=== PATIENT | male | born 1940 | race Caucasian/White ===

== ENCOUNTER → 2017-12-04 | Day surgery (SDC) | payer MEDICARE, OTHER ==
[2017-12-02 10:38] VITALS: BMI 27.3
[~2017-12-04] MED LIST: LACTATED RINGERS 1,000 ML IV ONE; LACTATED RINGERS 1,000 ML IV SCH; LIDOCAINE 1% 20 ML VIAL (10MG/ML) FOR IV START INTRADERMA ONE; LIDOCAINE 1% 20 ML VIAL (10MG/ML) FOR IV START INTRADERMA PRN; LIDOCAINE 1% INJ 10MG/ML (20 ML MDV) ONE; PROPOFOL 10 MG/ML 20 ML VIAL IV ONE
[2017-12-04 11:18] VITALS: TEMP 98
--- NOTE | 2017-12-04 13:05 | P.PCN ---
Date of Procedure: 12/04/17 Procedure(s) Performed: BRIEF HISTORY: Patient is a 77-year-old pleasant white male, scheduled for an elective colonoscopy as a part of screening for colorectal neoplasia. His Father had colon cancer in his 60s. PROCEDURE PERFORMED: Colonoscopy with snare polypectomy. PREOPERATIVE DIAGNOSIS: Screening for colon cancer/family history of colon cancer. IV sedation per Anesthesia. PROCEDURE: After informed consent was obtained, the patient, was brought into the endoscopy unit. IV sedation was administered by Anesthesia under continuous monitoring. Digital rectal examination was normal. Initially the Olympus CF- 160 flexible video colonoscope was then inserted in the rectum, gradually advanced into the cecum without any difficulty. Careful examination was performed as the scope was gradually being withdrawn. Ileocecal valve and the appendiceal orifice were visualized and appeared normal. Prep was excellent. Mucosa of the cecum, appeared normal. In the ascending colon there was a 1 segment of flat polyp that was removed by snare polypectomy. ascending colon, transverse colon, descending colon, sigmoid colon, and rectum appeared normal. Moderate left sided diverticulosis seen. Retroflexion was performed in the rectum and no lesions were seen. The patient tolerated the procedure well. IMPRESSION: 1 cm flat ascending colon polyp status post snare polypectomy. Moderate left sided diverticulosis RECOMMENDATIONS: Findings of this examination were discussed with the patient as well as his family. He was advised to follow with the biopsy results and have a repeat colonoscopy in 3 years.
[2017-12-04 13:28] VITALS: BP 146/69; PULSE 52; RESP 16
== END ==
LOC: ORWHC2ENDO 10:50
PROVIDERS: ATTEND Internal Medicine Gastroenterology
DX: Z12.11 Encounter for screening for malignant neoplasm of colon (principal); K63.5 Polyp of colon; K57.30 Diverticulosis of large intestine without perforation or abscess without bleeding; Z80.0 Family history of malignant neoplasm of digestive organs; I10 Essential (primary) hypertension; I48.91 Unspecified atrial fibrillation; K21.9 Gastro-esophageal reflux disease without esophagitis; H93.19 Tinnitus, unspecified ear; Z79.01 Long term (current) use of anticoagulants; Z79.899 Other long term (current) drug therapy; Z87.891 Personal history of nicotine dependence; Z91.041 Radiographic dye allergy status
CPT/HCPCS: 88305; 45385; J2001; J2704

== ENCOUNTER → 2018-12-03 | Outpatient (CLI) | payer MEDICARE, OTHER ==
--- NOTE | 2018-12-03 19:35 | P.STRESS ---
- Stress Test Note Stress Test Results/Findings: Exam Performed: stress echo exercise Exam Date: 12/03/18 Reason for Exam: sob Height: 5 ft 11 in Weight: 89.358 kg Protocol: Stress Echo Stage: IV Duration of Exercise: 10:45 Resting Heart Rate: 56 Resting Blood Pressure: 100/65 Maximum Achieved Heart Rate: 123 Maximum Achieved Blood Pressure: 167/51 85% PMHR: 122 100% PMHR: 143 METS: 85 Technologist Comment: Stress Test Results/Findings: This is a 78-year-old gentleman with history of hypertension and hypercholesterolemia being evaluated for symptoms of shortness of breath. Stress data: Baseline EKG showed sinus rhythm with normal WI interval, QRS duration with nonspecific changes. Patient awoke on the Anshu protocol for 10 minutes achieving a maximal heart rate of 123 with blood pressure 167/51. EKGs taken during and after exercise did not reveal any significant changes from the baseline. Echo data: Baseline echo images showed normal wall motion and thickening. Exercise echo images showed augmentation of wall motion and thickening in all the segments. Final impression: #1. Negative stress test #2. Negative stress echo
--- NOTE | 2018-12-04 11:26 | ECHOS ---
Stress Test Results/Findings: Exam Performed: stress echo exercise Exam Date: 12/03/18 Reason for Exam: sob Height: 5 ft 11 in Weight: 89.358 kg Protocol: Stress Echo Stage: IV Duration of Exercise: 10:45 Resting Heart Rate: 56 Resting Blood Pressure: 100/65 Maximum Achieved Heart Rate: 123 Maximum Achieved Blood Pressure: 167/51 85% PMHR: 122 100% PMHR: 143 METS: 85 Technologist Comment: Stress Test Results/Findings: This is a 78-year-old gentleman with history of hypertension and hypercholesterolemia being evaluated for symptoms of shortness of breath. Stress data: Baseline EKG showed sinus rhythm with normal HI interval, QRS duration with nonspecific changes. Patient awoke on the Anshu protocol for 10 minutes achieving a maximal heart rate of 123 with blood pressure 167/51. EKGs taken during and after exercise did not reveal any significant changes from the baseline. Echo data: Baseline echo images showed normal wall motion and thickening. Exercise echo images showed augmentation of wall motion and thickening in all the segments. Final impression: #1. Negative stress test #2. Negative stress echo MTDD
== END | disposition home or self-care (01) ==
LOC: RADNMMAIN 09:11
PROVIDERS: ATTEND Family Medicine
DX: R06.02 Shortness of breath (principal); R53.83 Other fatigue
CPT/HCPCS: 93351

== ENCOUNTER → 2022-02-12 | Outpatient (CLI) | payer MEDICARE, OTHER ==
--- NOTE | 2022-02-12 12:17 | CA ---
Exercise Stress Test Report Name: David Costa Exam Date: 02/12/2022 11:35 Exam Location: [facility] Ht (in): 71 Wt (lb): 193 BSA: 2.08 Ordering Phys: Radha Griffin MD Referring Phys: SAUNDRA,, Technologist: Elie Pedraza Age: 81 Gender: M : 1940 Procedure CPT: Indications: I49.9 arrythmia ICD-10 Codes: Patient History: HTN, FORMER SMOKER, POSSIBLE PRIOR MT, HX OF CARDIAC CATH Medications: LISINOPRIL,,,,,, TAMAOR,,,,,, ELIQUIS,,,,, Meds past 24 hrs: Pretest Chest Pain: STRESS TEST Anshu Protocol Exercise Duration (min:sec): 10:[address] Depressions (mm): Angina Score: Bravo Score: Resting HR (bpm): 58 Peak HR (bpm): 125 Resting BP (mmHg): 142 / 74 Peak BP (mmHg): 179 / 58 MPHR: 140 Target HR: 119 % MPHR: 89 METS: 12.1 Total Dose: Peak Dose: Atropine: Double Product: 28135 BP Response: Stress Termination: TARGET HR REACHED/MAX EXERTION Stress Symptoms: NO SYMPTOMS Stress Summary: ECG ANALYSIS Resting ECG: Normal sinus rhythm normal axis normal intervals with occasional PVCs Stress ECG: Patient exercised on Anshu protocol for 10 and half minutes achieving 12 mets 89% of predicted maximal heart rate without chest pain or diagnostic ST segment depression CONCLUSIONS Good exercise tolerance Negative stress test by EKG criteria Cardiolite portion of the stress test will be reported separately Dr. Jackson Durham MD (Electronically Signed) Final Date: 12 February 2022 12:16
--- NOTE | 2022-02-13 08:26 | NM ---
EXAMINATION TYPE: NM stress cardiolite complete DATE OF EXAM: 02/12/2022 COMPARISON: NONE HISTORY: 81-year-old male I 4 9.9, arrhythmia TECHNIQUE: After the intravenous administration of 10.5 mCi Tc 99m Sestamibi - Rest images obtained 45 minutes post injection. The patient exercised using a ANY protocol and 1 minute prior to peak exercise was injected with 25.8 mCi Tc 99m Sestamibi - Stress images obtained 10 minutes post injecti on. FINDINGS: Targeted heart rate (119 bpm) was achieved during performance of the study. 125 bpm achieved. Review of stress and rest SPECT images demonstrates a defect along the mid to basal inferior and inferosepta l wall particularly on rest. This becomes less pronounced on stress suggesting diaphragmatic attenuat ion artifact rather than a true defect. No discrete reversibility is seen. Gated analysis shows manuela l wall motion with an estimated left ventricular ejection fraction of 65 %. TID this calculated at 0 .73, within normal limits. IMPRESSION: Suspect prominent diaphragmatic attenuation artifact especially along the mid to basal in ferior wall rather than old infarct. No discrete reversibility is seen.
== END | disposition home or self-care (01) ==
LOC: RADNMMAIN 07:47
PROVIDERS: ATTEND Family Medicine
DX: I49.9 Cardiac arrhythmia, unspecified (principal)
CPT/HCPCS: 78452; 93017

== ENCOUNTER → 2022-02-28 | Outpatient (CLI) | payer MEDICARE, OTHER ==
--- NOTE | 2022-02-28 14:46 | P.SLEEP ---
History of Present Illness DATE: 02/28/2022 CONSULTATION/NEW PATIENT EVALUATION HISTORY OF PRESENT ILLNESS/SLEEP-WAKE EVALUATION: 81 year old gentleman had been evaluated in the sleep center for possible obstructive sleep apnea hypopnea syndrome. SLEEP SCHEDULE: Usually sleep schedule from 11:30 PM until 8 AM 7 days a week. FALLING ASLEEP: Usually no problems with the falling asleep, although patient used to agreed in bedroom. DURING SLEEP: Firmly denied snoring. Patient wakes up from sleep 2 times with nocturia. He has difficulties to fall asleep again after awakenings. Positive history of dry mouth, choking. No history of hypnogogical hallucinations, sleep paralysis, or cataplexy. DURING THE DAY/WAKE STATE: In the morning patient wake up tired, falling asleep during the day. [place] sleepiness scale is 11, which indicates sleepiness. Patient takes 1 nap at afternoon time. PAST MEDICAL HISTORY: Arterial fibrillation, hypertension. PAST SURGICAL HISTORY: Tonsillectomy. MEDICATIONS: Lisinopril, Eliquis, Tambocor. SOCIAL HISTORY: Negative for smoking, alcohol consumption occasional. FAMILY HISTORY: Heart problems, cancer, asthma. REVIEW OF SYSTEMS: Multiple awakenings from sleep with difficulties to initiate sleep again. No fevers. No double vision. No recent chest pain. No shortness of breath. No abdominal pain. No bleeding episodes. No blood in urine. No seizure episodes. PHYSICAL EXAMINATION: GENERAL: A pleasant patient without any distress. VITAL SIGNS: BP 116/65 , HR 58 , RR 14 , weight 200.6 pounds, height 5 foot 11.5 inches, body mass index 27.5 . HEENT: PERRLA, EOMI. Evaluation of oropharynx showed tongue protrudes midline, low position of soft palate Mallampati 34. NECK: Supple. No JVD. Thyroid is not palpable. 16-1/4 inches in circumference. LUNGS: Clear to percussion and to auscultation. Good air exchange. No wheezing or rhonchi. HEART: S1, S2 regular. No murmurs, gallops or rubs. ABDOMEN: Soft and nontender. Bowel sounds are present. No organomegaly appreciated. EXTREMITIES: No clubbing or cyanosis. MODEL MAKER APPRENTICE: Awake, alert, and oriented x3. Cranial nerves 2 to 7 intact. There is no fasciculation or atrophy noted. No focal deficits observed. ASSESSMENT: 1. Multiple awakenings from sleep, small oropharyngeal air space, sleepiness [place] Sleepiness Scale increased to 11. Obstructive sleep apnea hypopnea syndrome. 2. Hypertension. 3. History of atrial fibrillation. 4. Status post tonsillectomy. PLAN: 1. Polysomnography for evaluation of patient's breathing during sleep. 2. CPAP/BiPAP titration if sleep study confirms obstructive sleep apnea- hypopnea syndrome. 3. Preferable position during sleep on the side. 4. No driving if patient feels any sleepiness. Patient is aware of civil and criminal liability for unsafe driving. 5. Sleep hygiene with regular sleep time for at least 7.5-8 hours. 6. Watching weight. 7. Worry time psychological technique have been discussed with patient to prevent difficulties to fall asleep after awakenings at night. Thank you very much for referring this patient for consultation. Sincerely, Donn Hickman MD, PhD, FAASM. Diplomat of [place] [employer], Sleep Medicine Board by [place] [employer] [place] [employer] Surgical Dental Assistant of [facility] [place] Past Medical History Past Medical History: Atrial Fibrillation, Hypertension Additional Past Medical History / Comment(s): ringing in ears History of Any Multi-Drug Resistant Organisms: None Reported Past Surgical History: Heart Catheterization, Tonsillectomy Additional Past Surgical History / Comment(s): surgery lt hip for infection Past Anesthesia/Blood Transfusion Reactions: No Reported Reaction Past Psychological History: No Psychological Hx Reported Past Alcohol Use History: Rare Additional Past Alcohol Use History / Comment(s): smoked 4 years 1pack/wk quit 1967 - Past Family History Father Additional Family Medical History / Comment(s): passed at age 96 Mother Additional Family Medical History / Comment(s): passed at age 92 Medications and Allergies Home Medications Medication Instructions Recorded Confirmed Type Apixaban [Eliquis] 5 mg PO BID 12/02/17 12/02/17 History Flecainide [Tambocor] 50 mg PO Q12HR 12/02/17 12/02/17 History lisinopriL [Zestril] 2.5 mg PO DAILY 12/02/17 12/02/17 History Allergies Allergy/AdvReac Type Severity Reaction Status Date / Time cardiolite AdvReac a-fib,stomach Uncoded 12/02/17 10:55 cramps Sleep Note - Sleep Note Sleep Note: Temperature: Pulse Rate: Respiratory Rate: Blood Pressure: SpO2: Height: Weight: BMI: Neck Circumference:
== END ==
LOC: SLEEP 13:52
PROVIDERS: ATTEND Internal Medicine
DX: G47.33 Obstructive sleep apnea (adult) (pediatric) (principal); I10 Essential (primary) hypertension; Z90.09 Acquired absence of other part of head and neck; Z99.89 Dependence on other enabling machines and devices; I48.91 Unspecified atrial fibrillation; Z87.891 Personal history of nicotine dependence; Z79.899 Other long term (current) drug therapy; Z88.8 Allergy status to other drugs, medicaments and biological substances
CPT/HCPCS: 99211

== ENCOUNTER 2023-01-21 16:11 | Emergency (ER) | payer MEDICARE, OTHER ==
--- NOTE | 2023-01-21 17:02 | ED ---
General Adult HPI - General Source: patient, family Mode of arrival: wheelchair <Keyana Reeves - Last Filed: 01/21/23 17:01> - General Source: patient, family, RN notes reviewed Mode of arrival: wheelchair Limitations: no limitations <Gerardo Garcia - Last Filed: 01/21/23 20:30> - General Stated complaint: vomiting Time Seen by Provider: 01/21/23 17:01 - History of Present Illness Initial comments: 82-year-old male presenting with chief complaint of nausea and vomiting. This started yesterday. Patient also states that he has lost hearing in the right ear. This started shortly after taking sildenafil. (Keyana Reeves) Patient is a pleasant 82-year-old male presenting to the emergency department with nausea vomiting. Onset of symptoms was last night. Patient has had several episodes of nausea vomiting. He should does have decreased hearing to the right ear as well as ringing in the ear. Patient has dizziness/vertigo-type symptoms. Vomiting is associated with dizziness. (Gerardo Garcia) - Related Data Home Medications Medication Instructions Recorded Confirmed Apixaban [Eliquis] 5 mg PO BID 12/02/17 12/02/17 Flecainide [Tambocor] 50 mg PO Q12HR 12/02/17 12/02/17 lisinopriL [Zestril] 2.5 mg PO DAILY 12/02/17 12/02/17 Previous Rx's Medication Instructions Recorded Meclizine [Antivert] 25 mg PO TID PRN #12 tab 01/21/23 Metoclopramide HCl [Reglan] 10 mg PO Q6HR PRN #15 tablet 01/21/23 predniSONE [Deltasone] 20 mg PO BID #10 tab 01/21/23 Allergies Allergy/AdvReac Type Severity Reaction Status Date / Time cardiolite AdvReac a-fib,stomach Uncoded 01/21/23 17:05 cramps Review of Systems ROS Other: All systems not noted in ROS Statement are negative. <Keyana Reeves - Last Filed: 01/21/23 17:01> ROS Other: All systems not noted in ROS Statement are negative. Constitutional: Denies: fever Eyes: Denies: eye pain ENT: Reports: as per HPI, hearing loss Respiratory: Denies: cough Cardiovascular: Denies: chest pain Endocrine: Denies: fatigue Gastrointestinal: Reports: as per HPI, nausea, vomiting Neurological: Reports: vertigo. Denies: headache, weakness, confusion <Gerardo Garcia - Last Filed: 01/21/23 20:30> ROS Statement: Those systems with pertinent positive or pertinent negative responses have been documented in the HPI. Past Medical History Past Medical History: Atrial Fibrillation, Hypertension Additional Past Medical History / Comment(s): ringing in ears History of Any Multi-Drug Resistant Organisms: None Reported Past Surgical History: Heart Catheterization, Tonsillectomy Additional Past Surgical History / Comment(s): surgery lt hip for infection Past Anesthesia/Blood Transfusion Reactions: No Reported Reaction Past Psychological History: No Psychological Hx Reported Past Alcohol Use History: Rare Additional Past Alcohol Use History / Comment(s): smoked 4 years 1pack/wk quit 1967 - Past Family History Father Additional Family Medical History / Comment(s): passed at age 96 Mother Additional Family Medical History / Comment(s): passed at age 92 <Keyana Reeves - Last Filed: 01/21/23 17:01> General Exam <Keyana Reeves - Last Filed: 01/21/23 17:01> Limitations: no limitations General appearance: alert, appears intoxicated Head exam: Present: normocephalic Eye exam: Present: normal appearance, PERRL, EOMI. Absent: nystagmus ENT exam: Present: normal oropharynx, other (Right TM obscured with cerumen) Neck exam: Present: normal inspection Respiratory exam: Present: normal lung sounds bilaterally Cardiovascular Exam: Present: normal rhythm, bradycardia GI/Abdominal exam: Present: soft. Absent: tenderness Extremities exam: Present: normal inspection Neurological exam: Present: alert Psychiatric exam: Present: normal affect, normal mood Skin exam: Present: normal color <Gerardo Garcia - Last Filed: 01/21/23 20:30> - General Exam Comments Initial Comments: Visual Physical Exam Vital signs reviewed General: Well-appearing, nontoxic, no acute distress. Head: Normocephalic, atraumatic Eyes: PERRLA, EOMI ENT: Airway patent Chest: Nonlabored breathing Skin: No visual rash, normal skin tone Neuro: Alert and oriented 3 Musculoskeletal: No gross abnormalities (Keyaan Reeves) Course Vital Signs 01/21/23 16:59 Temperature 98.1 F Pulse Rate 53 L Respiratory 16 Rate Blood Pressure 136/65 O2 Sat by Pulse 97 Oximetry EKG Findings - EKG Results: EKG: interpreted by ERMD (left ax is. Inferior T wave inversion.), sinus rhythm, normal QRS EKG shows: bradycardia <Gerardo Garcia - Last Filed: 01/21/23 20:30> Medical Decision Making - Lab Data Result diagrams: 01/21/23 19:19 01/21/23 19:19 <Gerardo Garcia - Last Filed: 01/21/23 20:30> - Medical Decision Making Was pt. sent in by a medical professional or institution (, PA, [facility]CK[facility]WER, urgent care, hospital, or intermediate...) When possible be specific @ -Patient was at Dr. rodney office prior to arrival Did you speak to anyone other than the patient for history (EMS, parent, family, police, friend...)? What history was obtained from this source @ - is present that helps confirm history Did you review nursing and triage notes (agree or disagree)? Why? @ -I reviewed and agree with nursing and triage notes Were old charts reviewed (outside hosp., previous admission, EMS record, old EKG, old radiological studies, urgent care reports/EKG's, intermediate records)? Report findings @ -No old charts were reviewed Differential Diagnosis (chest pain, altered mental status, abdominal pain women, abdominal pain men, vaginal bleeding, weakness, fever, dyspnea, syncope, head ache, dizziness, GI bleed, back pain, seizure, CVA, palpatations, mental health, musculoskeletal)? @ -Differential Dizziness: Benign paroxysmal positional Vertigo, Menieres disease, otitis media, acoustic neuroma, vertebrobasilar insufficiency, cerebellar stroke, encephalitis, hypovolemic, arrhythmia, coronary artery syndrome, anemia, this is not meant to be an all-inclusive list EKG interpreted by me (3pts min.). @ -As above X-rays interpreted by me (1pt min.). @ -None done CT interpreted by me (1pt min.). @ -None done U/S interpreted by me (1pt. min.). @ -None done What testing was considered but not performed or refused? (CT, X-rays, U/S, labs)? Why? @ -None What meds were considered but not given or refused? Why? @ -None Did you discuss the management of the patient with other professionals (professionals i.e. , PA, [facility], lab, RT, psych nurse, social service coordinator, home health travel pt, teacher, combat systems officer, wrapper caser)? Give summary @ -No Was smoking cessation discussed for >3mins.? @ -No Was critical care preformed (if so, how long)? @ -No Were there social determinants of health that impacted care today? How? (Homelessness, low income, unemployed, alcoholism, drug addiction, transportation, low edu. Level, literacy, decrease access to med. care, fci, rehab)? @ -No Was there de-escalation of care discussed even if they declined (Discuss DNR or withdrawal of care, Hospice)? DNR status @ -No What co-morbidities impacted this encounter? (DM, HTN, Smoking, COPD, CAD, Cancer, CVA, ARF, Chemo, Hep., AIDS, mental health diagnosis, sleep apnea, morbid obesity)? @ -None Was patient admitted / discharged? Hospital course, mention meds given and route, prescriptions, significant lab abnormalities, going to OR and other pertinent info. @ -Patient reevaluated and is symptom-free. Patient presents with history consistent with Mnire's disease. Patient will be prescribed steroids and recommended follow-up with ENT. Patient will be discharged. Undiagnosed new problem with uncertain prognosis? @ -No Drug Therapy requiring intensive monitoring for toxicity (Heparin, Nitro, Insulin, Cardizem)? @ -No Were any procedures done? @ -No Diagnosis/symptom? @ -Mnire's disease Acute, or Chronic, or Acute on Chronic? @ -Acute Uncomplicated (without systemic symptoms) or Complicated (systemic symptoms)? @ -default Side effects of treatment? @ -No Exacerbation, Progression, or Severe Exacerbation? @ -No Poses a threat to life or bodily function? How? (Chest pain, [place], [place], pneumonia, PE, COPD, DKA, ARF, appy, cholecystitis, CVA, Diverticulitis, Homicidal, Suicidal, threat to staff... and all critical care pts) @ -No (Gerardo Garcia) - Lab Data Lab Results 01/21/23 01/21/23 Range/Units 19:19 19:19 WBC 10.0 (3.8-10.6) k/uL RBC 4.69 (4.30-5.90) m/uL Hgb 14.7 (13.0-17.5) gm/dL Hct 44.0 (39.0-53.0) % MCV 93.9 (80.0-100.0) fL MCH 31.3 (25.0-35.0) pg MCHC 33.4 (31.0-37.0) g/dL RDW 13.0 (11.5-15.5) % Plt Count 182 (150-450) k/uL MPV 7.2 Neutrophils % 88 % Lymphocytes % 8 % Monocytes % 3 % Eosinophils % 0 % Basophils % 0 % Neutrophils # 8.8 H (1.3-7.7) k/uL Lymphocytes # 0.8 L (1.0-4.8) k/uL Monocytes # 0.3 (0-1.0) k/uL Eosinophils # 0.0 (0-0.7) k/uL Basophils # 0.0 (0-0.2) k/uL Sodium 137 (137-145) mmol/L Potassium 4.2 (3.5-5.1) mmol/L Chloride 101 (98-107) mmol/L Carbon Dioxide 22 (22-30) mmol/L Anion Gap 14 mmol/L BUN 21 H (9-20) mg/dL Creatinine 1.12 (0.66-1.25) mg/dL Est GFR (CKD-EPI)AfAm 71 (>60 ml/min/1.73 sqM) Est GFR (CKD-EPI)NonAf 62 (>60 ml/min/1.73 sqM) Glucose 120 H (74-99) mg/dL Calcium 10.0 (8.4-10.2) mg/dL Total Bilirubin 1.4 H (0.2-1.3) mg/dL AST 29 (17-59) U/L ALT 17 (4-49) U/L Alkaline Phosphatase 64 (38-126) U/L Total Protein 7.1 (6.3-8.2) g/dL Albumin 4.3 (3.5-5.0) g/dL Disposition <Keyana Reeves - Last Filed: 01/21/23 17:01> Is patient prescribed a controlled substance at d/c from ED?: No Time of Disposition: 20:28 <Gerardo Garcia - Last Filed: 01/21/23 20:30> Clinical Impression: Mnire's disease Disposition: HOME SELF-CARE Condition: Stable Instructions (If sedation given, give patient instructions): Acute Nausea and Vomiting (ED), Meniere Disease (ED) Additional Instructions: Prescription sent to pharmacy. Please do follow-up with primary care physician and ENT in the next day or 2 for recheck. Return for weakness, uncontrolled vomiting, worsening symptoms or any other concerns. Prescriptions: Meclizine [Antivert] 25 mg PO TID PRN #12 tab PRN Reason: dizziness predniSONE [Deltasone] 20 mg PO BID #10 tab Metoclopramide HCl [Reglan] 10 mg PO Q6HR PRN #15 tablet PRN Reason: Nausea Referrals: Radha Griffin MD [Primary Care Provider] - 1-2 days
[2023-01-21 17:08] VITALS: RESP 16; TEMP 98.1
[2023-01-21] MEDS ORDERED: SODIUM CHLORIDE 0.9% 500 ML 500 ML IV STA (19:05)
[2023-01-21] MEDS ORDERED: SCOPOLAMINE 1 MG/72 HR PATCH TRANSDERM STA (19:05)
[2023-01-21] MEDS ORDERED: MECLIZINE 12.5 MG TAB PO STA (19:05)
[2023-01-21] MEDS ORDERED: METOCLOPRAMIDE 5 MG/ML 2 ML VIAL IVP STA (19:05)
[2023-01-21 19:35] LABS: Basophils % (A) 0 %; Eosinophils % (A) 0 %; HGB 14.7 gm/dL (13.0-17.5); Lymphocytes # (A) 0.8 k/uL (1.0-4.8); Lymphocytes % (A) 8 %; MCH 31.3 pg (25.0-35.0); MCHC 33.4 g/dL (31.0-37.0); MCV 93.9 fL (80.0-100.0); Mean Platelet Volume 7.2; Monocytes # (A) 0.3 k/uL (0-1.0); Monocytes % (A) 3 %; Neutrophils # (A) 8.8 k/uL (1.3-7.7); Neutrophils % (A) 88 %; Platelet Count 182 k/uL (150-450); RBC 4.69 m/uL (4.30-5.90)
[2023-01-21 19:47] LABS: ALT 17 U/L (4-49); AST 29 U/L (17-59); African American GFR (CKD) 71 (>60 ml/min/1.73 sqM); Albumin 4.3 g/dL (3.5-5.0); Alkaline Phosphatase 64 U/L (38-126); Anion Gap 14 mmol/L; Blood Urea Nitrogen 21 mg/dL (9-20); Carbon Dioxide 22 mmol/L (22-30); Chloride 101 mmol/L (98-107); Glucose 120 mg/dL (74-99); Non-African American GFR(CKD) 62 (>60 ml/min/1.73 sqM); Potassium 4.2 mmol/L (3.5-5.1); Sodium 137 mmol/L (137-145); Total Bilirubin 1.4 mg/dL (0.2-1.3); Total Protein 7.1 g/dL (6.3-8.2)
[2023-01-21] MEDS ORDERED: methylPREDNISolone SOD SUCCI 125 MG/2 ML VIAL IV STA (20:25)
[2023-01-21 20:51] VITALS: BP 147/76; PULSE 57
== END 2023-01-21 20:42 | disposition home or self-care (01) ==
LOC: EC 16:11
DX: K29.60 Other gastritis without bleeding (principal); R00.1 Bradycardia, unspecified; I10 Essential (primary) hypertension; I48.91 Unspecified atrial fibrillation; Z87.891 Personal history of nicotine dependence; Z88.8 Allergy status to other drugs, medicaments and biological substances; Z79.01 Long term (current) use of anticoagulants; Z79.899 Other long term (current) drug therapy
CPT/HCPCS: 36415; 93005; 80053; 85025; 99284; 96374; 96375; 96361; J2765; J2930

== ENCOUNTER → 2023-03-04 | Outpatient (CLI) | payer MEDICARE, OTHER ==
--- NOTE | 2023-03-06 21:34 | MR ---
EXAMINATION TYPE: MR brain and iac wo/w con DATE OF EXAM: 03/04/2023 6:04 PM CLINICAL INDICATION:Male, 82 years old with history of H90.5 SENSORINEURAL HEARING LOSS; PHH, Sudden sensorineural hearing loss, right side COMPARISON: 06/06/2015 TECHNIQUE: Multi planar, multi sequence imaging was performed through the brain. Specialized thin s equences were obtained through the internal auditory canals. Pre-and post gadolinium sequences were obtained. MR contrast: IV Contrast: 9 cc Gadavist FINDINGS: Mild generalized atrophy changes with proportional dilation of ventricular system. The jaquez-white ju nctions, ventricular system, and cisterns appear unremarkable. Scattered foci of high T2 signal inte nsity are seen within the periventricular white matter. Midline structures show no abnormality. Diffu betina-weighted imaging shows no evidence of restricted diffusion. Blooming artifact along the left occ ipital lobe cerebrum and gyriform pattern suggestive of hemosiderin deposition from prior hemorrhage. The bone marrow signal is within normal limits. Paranasal sinuses and mastoid air cells: Mild scattered paranasal sinus disease. Visualized orbits: Orbital contents are intact. After administration of gadolinium, no abnormal enhancement is seen. The internal auditory canal sequences demonstrate no significant irregularity. The 7th cranial nerve s, 8 cranial nerves, and cerebellar pontine angles appear unremarkable. After the administration bronwyn olinium, no abnormal enhancement is seen within the internal auditory canals. Vascular loop: None. IMPRESSION: 1. No evidence of intracranial mass nor acute/subacute CVA. 2. No evidence of internal auditory canal abnormality. 3. Nonspecific white matter changes, likely secondary to small vessel ischemic disease. 4. Hemosiderin deposition along the left occipital/parietal region suggestive of prior hemorrhage.
== END | disposition home or self-care (01) ==
LOC: RADMRIMAIN 15:59
PROVIDERS: ATTEND Otolaryngology
DX: G93.89 Other specified disorders of brain (principal); H18.0 Corneal pigmentations and deposits; H90.41 Sensorineural hearing loss, unilateral, right ear, with unrestricted hearing on the contralateral side
CPT/HCPCS: 70553; A9585

== ENCOUNTER → 2024-09-07 | Outpatient (CLI) | payer MEDICARE, OTHER ==
--- NOTE | 2024-09-07 13:53 | NM ---
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 Images acquired 3 hours post injection. FINDINGS: Degenerative tracer activity right sternoclavicular joint, both shoulders, sternomanubrial joint, asy mmetric on both sides, and left hindfoot. There is a slight dextroconvex curvature in the upper third thoracic spine. No suspicious tracer activity is seen. Focal activity at the left elbow likely corre sponding to the injection site. IMPRESSION: Scattered degenerative tracer activity as above. No scintigraphic evidence for osseous me tastatic disease. No significant abnormal activity seen within the lumbar spine. [facility], , 09/07/2024 1:50 PM
== END | disposition home or self-care (01) ==
LOC: RADNMMAIN 09:58
PROVIDERS: ATTEND Physical Medicine & Rehabilitation
DX: M48.062 Spinal stenosis, lumbar region with neurogenic claudication (principal); M19.011 Primary osteoarthritis, right shoulder
CPT/HCPCS: 78306; A9503